=== PATIENT | female | born 1950 | race Caucasian/White ===

== ENCOUNTER 2022-07-05 19:00 | Outpatient (CLI) | payer MEDICARE | END 2022-07-05 19:01 | disposition home or self-care (01) | LOC: SLEEPLAB 19:00 | PROVIDERS: ATTEND Family Medicine | DX: G47.33 Obstructive sleep apnea (adult) (pediatric) (principal) | CPT/HCPCS: 95810 ==

== ENCOUNTER 2025-01-04 07:50 | Outpatient (CLI) | payer MEDICARE | END 2025-01-04 07:51 | disposition home or self-care (01) | LOC: SCSBT 07:50 | PROVIDERS: ATTEND Family Medicine | DX: Z78.0 Asymptomatic menopausal state (principal) | CPT/HCPCS: 77080 ==